=== PATIENT | male | born 1970 | race Caucasian/White ===

== ENCOUNTER 2022-03-12 00:15 | Emergency (ER) | payer OTHER, SELFPAY ==
--- NOTE | 2022-03-12 00:15 | DI.CT_ITS ---
Exam(s) CT RENAL COLIC WO EXAM: CT RENAL COLIC WO CLINICAL HISTORY: left flank pain. TECHNIQUE: Imaging Protocol: Axial computed tomography images with coronal and sagittal reformatted images were created and reviewed. COMPARISON: No exams were available for comparison FINDINGS: ABDOMEN: Lung Bases: Normal where visualized. Liver: Normal density. No measurable mass. Gallbladder and biliary tract: Cholelithiasis. No biliary ductal dilatation. Pancreas: Normal density, no abnormal calcifications or inflammatory process. Spleen: Normal. Kidneys: Normal size, contour and axis.There is a 3 mm stone on the bladder side of the left UVJ caus ing mild hydronephrosis. No masses seen. Adrenal glands: No mass is seen. Lymph nodes: Within normal limits. Abdominal Aorta: Abdominal portion non-dilated. PELVIS: Bladder:Symmetric distention, no gross wall thickening. Bowel: No obstruction or bowel wall thickening. Appendix is unremarkable. Peritoneal cavity: No ascites, collection or mesenteric inflammatory response. No free air. Reproductive organs: Unremarkable as visualized. Bones: Within normal limits. Soft Tissues: There are bilateral fat containing inguinal hernia, left greater than right. IMPRESSION: 1. 3 mm stone on the bladder side of the left UVJ causing mild hydronephrosis. 2. Cholelithiasis. No biliary ductal dilatation. RADIATION DOSE DELIVERED: 803.32mGy.cm Total DLP DATA REPOSITORY: All CT scans at this facility are submitted to the National Radiology Data Registry (NRDR) Dose Index Registry (DIR) with the [employer] ([employer]). RADIATION OPTIMIZATION: All CT scans at this facility use at least one of these dose optimization te chniques: automated exposure control; mA and/or kV adjustment per patient size (includes targeted exa ms where dose is matched to clinical indication); or iterative reconstruction.
[2022-03-12 00:16] VITALS: BP 147/95; PULSE 64; RESP 12; TEMP 36.6; O2SAT 99
--- NOTE | 2022-03-12 00:27 | ED.GENADUL_ITS ---
Discharge Plan Disposition Patient Disposition: HOME Condition: Stable Discharge Details Clinical Impression: Kidney stone Primary Care Provider: Chey,Local ED Provider: Alex Colunga Home Meds and New Rx's Prescriptions: Continued dextroamphetamine-amphetamine [Adderall] 20 mg Tablet 20 mg trazodone 50 mg Tablet 50 mg Discharge Instructions Instructions: Kidney Stones (ED) Additional Instructions: you have a kidney stone that is already in the bladder follow up with your primary care provider within 1-2 weeks if you feel more ill, have severe worsening pain or fevers return to the emergency department Medical Decision Making 52 yo male who has a hx of hld and htn comes in with left flank pain starting a day ago. He states the pain is intermittent but tonight was severe so called ems. He denies n/v, fevers, chills, dysuria. He denies history of kidney stones, no prior abdominal surgeries. He states his pain is better now than it was when he called ems. He localizes the pain to the left lower abdomen and states it was radiating into the back. He has a soft abdomen, has tenderness without guarding in the left lower abdomen, no cva tenderness, no upper abdomen tenderness, no testicle swelling or tenderness. Will obtain labs including cbc, cmp, lipase and ct renal colic. ct shows 3mm stone in the bladder suggesting recently passed, he remains stable and feels no pain now so suspect he has passed the stone. His K was 2.8, oral repletion ordered, will recheck bmp and still waiting for ua ua unremarkable other than hematuria, no evidence of infetion and repeat K normal. Discussed with pt and because he has no symptoms now and because it's in the bladder do not feel he requires urology follow up. I did discuss his gallstones as well and he states he has had these for years and doesn't get symptoms from them, doesn't want a surgical referral. Advised to f/u with pcp and return precautions given Differential Diagnosis Differential Diagnosis: kidney stone, diverticulitis Imaging Data Radiologic Study: Attestation: I personally reviewed and interpreted this imaging study as follows: Imaging: CT Scan Radiologist's impression: IMPRESSION: Mild left hydronephrosis and 3 mm stone in the bladder lumen likely recently passed. Cholelithiasis. Few scattered colonic diverticula Lab Data Lab results reviewed: Yes I reviewed the patient's lab results. HPI General Mode of arrival: EMS . Date/Time Provider Initiated Documentation: 03/12/22 00:17 . Limitations to Documentation: no limitations . Information obtained by: patient . History of Present Illness 52 year old M presents to the emergency department with the chief complaint of left flank pain, described as moderate, Quality is described as stabbing, and is localized to the abdomen and left. Patient reports radiation to back. Patient started experiencing this day(s) (1) and it has been intermittent. No relieving factors improve symptom(s), No exacerbating factors reported . Patient notes no other symptoms.. Patient did receive the following treatments prior to arrival, none Related Data Home Medications Medication Instructions Recorded Confirmed dextroamphetamine-amphetamine 20 20 mg 03/12/22 mg tablet (Adderall) trazodone 50 mg tablet 50 mg 03/12/22 Allergies Allergy/AdvReac Type Severity Reaction Status Date / Time No Known Allergies Allergy Unverified 03/12/22 00:37 General Stated Complaint: FlankPain MARICRUZ: 3 Review of Systems All systems reviewed & are unremarkable except as noted in HPI and below Constitutional Constitutional: Denies chills, Denies fever(s) and Denies weakness Eyes Eyes: Denies loss of vision ENT Ears, Nose, Mouth, and Throat: Denies change in voice Cardiovascular Cardiovascular: Denies chest pain and Denies dyspnea Respiratory Respiratory: Denies cough and Denies dyspnea Gastrointestinal Gastrointestinal: Denies nausea and Denies vomiting Genitourinary Genitourinary: Denies dysuria Integumentary/Breasts Skin/Breast: Denies rash Neurologic Neurologic: Denies loss of vision and Denies weakness PFSH All Active Problems (Updated 03/12/22 @ 01:43 by Alex Colunga MD) Kidney stone (Chronic) Social History Smoking/Tobacco Use Status: Never Smoking risk assessment performed?: Yes Alcohol Intake: current Alcohol Intake frequency: a few times a week Alcohol type: hard liquor Substance use type: does not use Do you feel safe at home: Yes Do you feel safe in your relationship?: Yes Exam Const General: no acute distress Orientation: alert HENMT Head: normal to inspection Ears: external ears normal General nose exam: external nose normal Mouth: moist mucous membranes Eyes General: appearance normal, both eyes and all related structures Neck Neck: normal visual inspection Resp Effort & Inspection: normal respiratory effort and able to speak in complete sentences Cardio Rate: regular rate GI Palpation: soft Back/Spine/Pelvis Back: no CVA tenderness Skin General skin exam: no rashes or lesions noted Neuro General: patient alert and patient oriented x3 Extrem General: normal to inspection Psych Mental Status: mental status grossly normal Course Vital Signs Vital signs: Vital Signs Temperature 36.6 C 03/12/22 00:16 Pulse 64 03/12/22 00:16 Respiratory Rate 12 03/12/22 00:16 Blood Pressure 147/95 H 03/12/22 00:16 Pulse Oximetry 99 03/12/22 00:16 Temperature 36.6 C 03/12/22 00:16 Temperature Source Temporal Artery Scan 03/12/22 00:16 Pulse 64 03/12/22 00:16 Respiratory Rate 12 03/12/22 00:16 Respiratory Effort 03/12/22 00:19 Blood Pressure 147/95 H 03/12/22 00:16 Pulse Oximetry 99 03/12/22 00:16 Oxygen Delivery Method Room Air 03/12/22 00:16 Oxygen Flow Rate 0 03/12/22 00:16 Pain Level 8 03/12/22 00:16 PAWSS Have you Been Recently Intoxicated or Drunk Within the Last 30 days?: No Result: 0
[2022-03-12] MEDS: Normal Saline 1,000 ML 1000 ML IV (00:32)
[2022-03-12 00:34] LABS: Abs Immature Grans 0.02 10^3/uL (0.0-0.06); Absolute Basophil Count 0.05 10^3/uL (0.0-0.2); Absolute Eosinophil Count 0.12 10^3/uL (0.0-0.7); Absolute Lymphocyte Count 2.01 10^3/uL (1.2-3.4); Absolute Monocyte Count 0.45 10^3/uL (0.1-0.8); Absolute Neutrophil Count 2.19 10^3/uL (1.2-6.7); Eosinophils % 2.5; HCT 37.9 % (40.0-50.0); HGB 13.5 g/dL (13.5-17.5); Immature Grans % 0.4; Lymphocytes % 41.5; MCH 31.5 pg (27.0-33.0); MCHC 35.6 % (32.0-36.0); MCV 88 fL (80-95); MPV 9.9 fL (8.0-11.0); Monocytes % 9.3; Neutrophils % 45.3; Platelet Count 247 10^3/uL (130-400); RBC 4.29 10^6/uL (4.36-5.78); RDW 12.5 % (11.8-14.1); RDW-SD 40.5 fL; WBC 4.84 10^3/uL (4.4-10.8)
[2022-03-12] MEDS: Ketorolac 15 MG/ML VIAL IVP (00:34)
[2022-03-12 00:46] LABS: ALT 44 U/L (16-63); AST 34 U/L (15-37); Albumin 3.8 g/dL (3.4-5.0); Alkaline Phosphatase 48 U/L (46-116); Anion Gap 11.2 mmol/L (3-11); BUN 11 mg/dL (7-18); Bilirubin, Direct 0.1 mg/dL (0.0-0.2); Bilirubin, Total 0.4 mg/dL (0.2-1.0); CO2 23.8 mmol/L (21.0-32.0); CREATININE 1.2 mg/dL (0.70-1.30); Calcium 8.9 mg/dL (8.5-10.1); Chloride 102 mmol/L (98-107); Glucose 162 mg/dL (74-106); Lipase 72 U/L (73-393); Sodium 137 mmol/L (136-145); Total Protein 6.7 g/dL (6.4-8.2)
[2022-03-12 00:47] LABS: Potassium 2.8 mmol/L (3.5-5.1)
[2022-03-12] MEDS: Potassium Chloride 20 MEQ TABCR 40 MEQ PO (01:00)
--- NOTE | 2022-03-12 01:37 | DI.VRAD_ITS ---
PROCEDURE INFORMATION: Exam: CT Abdomen And Pelvis Without Contrast Exam date and time: 03/12/2022 12:45 AM Age: 52 years old Clinical indication: Patient HX: L flank pain TECHNIQUE: Imaging protocol: Computed tomography of the abdomen and pelvis without contrast. Radiation optimization: All CT scans at this facility use at least one of these dose optimization techniques: automated exposure control; mA and/or kV adjustment per patient size (includes targeted exams where dose is matched to clinical indication); or iterative reconstruction. COMPARISON: No relevant prior studies available. FINDINGS: Liver: Normal. No mass. Gallbladder and bile ducts: Cholelithiasis. No biliary ductal dilatation. Pancreas: Normal. No ductal dilation. Spleen: Normal. No splenomegaly. Adrenal glands: Normal. No mass. Kidneys and ureters: There is mild left hydronephrosis and a 3 mm stone in the bladder lumen. Right kidney is unremarkable. Stomach and bowel: Few colonic diverticula. Stomach and small bowel are unremarkable. Appendix: Normal appendix. Intraperitoneal space: Benign-appearing lobular 2 x 1.3 cm calcification in the right pelvis. No free air. No significant fluid collection. Vasculature: Unremarkable. No abdominal aortic aneurysm. Lymph nodes: Unremarkable. No enlarged lymph nodes. Urinary bladder: Unremarkable as visualized. Reproductive: Unremarkable as visualized. Bones/joints: Unremarkable. No acute fracture. Soft tissues: Small fat containing inguinal hernias. IMPRESSION: Mild left hydronephrosis and 3 mm stone in the bladder lumen likely recently passed. Cholelithiasis. Few scattered colonic diverticula. Rest of incidental findings as above. Dictated and Authenticated by: Thea Chavez MD. Ordering:CATHY Johnson MD
[2022-03-12 01:58] LABS: Bilirubin Negative (Negative); Blood Large (Negative); Clarity Sl Cloudy (Clear); Glucose Negative (Negative); Ketones Negative (Negative); Leukocyte Esterase Negative (Negative); Nitrite Negative (Negative); Specific Gravity 1.025 (1.005-1.025); Urobilinogen 0.2 EU/dL (Up TO 0.2)
[2022-03-12 02:01] LABS: Bacteria Rare HPF (Negative); C & S Indicated? No; Casts Negative LPF (Negative); Crystals Negative HPF (Negative); Epithelial Cells Negative HPF (Negative); Mucus Negative (Negative); RBC >50 HPF (0-2); WBC Negative HPF (0-5)
[2022-03-12 02:03] LABS: Anion Gap 9.2 mmol/L (3-11); BUN 11 mg/dL (7-18); CO2 23.8 mmol/L (21.0-32.0); CREATININE 1.1 mg/dL (0.70-1.30); Calcium 8.6 mg/dL (8.5-10.1); Chloride 103 mmol/L (98-107); Glucose 113 mg/dL (74-106); Potassium 3.5 mmol/L (3.5-5.1); Sodium 136 mmol/L (136-145)
== END 2022-03-12 02:16 | disposition home or self-care (01) ==
PROVIDERS: Emergency Provider Emergency Medicine
DX: N13.2 Hydronephrosis with renal and ureteral calculous obstruction (principal); K80.20 Calculus of gallbladder without cholecystitis without obstruction
CPT/HCPCS: 80048; 80053; 83690; 96361; 96374; 99284; 74176; 81003; 81015; 82248; 85025; J1885

== ENCOUNTER 2025-01-28 00:02 | Outpatient (CLI) | payer MEDICAID, SELFPAY ==
--- NOTE | 2025-01-28 | DI.US_ITS ---
Exam(s) US SCROTUM EXAM: US SCROTUM CLINICAL HISTORY: abnl skin growth D49.2 Neoplsm of behavior of bone, soft tissue, skin. TECHNIQUE: Scrotal ultrasound performed using grayscale, color-flow and spectral Doppler analysis. COMPARISON: No exams were available for comparison FINDINGS: Right testicle: 3.4 x 2.6 x 3.2 cm Echogenicity: Normal. Contour: Smooth. Mass: None seen. Microlithiasis: None. Hydrocele: There is a small hydrocele measuring 2.8 x 1.3 x 0.9 cm. Variocele: None. Hernia: No peristalsing bowel loop identified. Epididymis: Normal. Left testicle: 4.3 x 2.2 x 2.9 cm Echogenicity: Normal. Contour: Smooth. Mass: None seen. Microlithiasis: None. Hydrocele: There is a small hydrocele measuring 1.5 x 0.5 x 1.3 cm. Variocele: None. Hernia: No peristalsing bowel loop identified. Epididymis: Normal. DOPPLER: Color: Symmetric and uniform, no hyperemia. IMPRESSION: 1. Normal appearing bilateral testicles. 2. Small bilateral hydroceles. DATA REPOSITORY:
== END 2025-01-28 00:22 ==
LOC: DI 00:02
PROVIDERS: PCP Nurse Practitioner Family; Visit Provider Nurse Practitioner Family
DX: N43.3 Hydrocele, unspecified (principal)
CPT/HCPCS: 76870

== ENCOUNTER 2025-05-24 07:32 | Day surgery (SDC) | payer MEDICAID, SELFPAY ==
--- NOTE | 2025-05-23 17:56 | W.PM.DSUDISC ---
Date of service: 05/24/25 Discharge Plan Disposition Patient Disposition: Home Condition: Good Discharge Details Reason For Visit: screening colonoscopy Attending Provider: Harrison Nguyen Primary Care Provider: Ashley Walden Home Meds and New Rx's Prescriptions: Continued sildenafil 50 mg tablet 50 mg PO DAILY PRN Rx Instructions: administer 30 minutes to 4 hours before activity pantoprazole 40 mg tablet,delayed release (DR/EC) 40 mg PO HS lisinopril-hydrochlorothiazide 20-12.5 mg tablet 1 tab PO DAILY dextroamphetamine-amphetamine 30 mg capsule,extended release 24hr 30 mg PO DAILY gemfibrozil 600 mg tablet 600 mg PO BID dextroamphetamine-amphetamine [Adderall] 20 mg Tablet 20 mg PO DAILY trazodone 50 mg Tablet 50 mg PO HS Discontinued bisacodyl [Dulcolax (bisacodyl)] 5 mg tablet,delayed release (DR/EC) 5 mg PO ONCE Qty: 4 0RF Rx Instructions: Take per colonoscopy instructions provided by ordering providers office polyethylene glycol 3350 17 gram/dose powder 17 g PO ONCE Qty: 238 0RF Rx Instructions: Take per colonoscopy instructions provided by ordering providers office Discharge Instructions Additional Instructions: 1. If tolerated, consume a soft, low fiber diet for 1-2 days. 2[address] Do not drive, drink alcohol, operate machinery, make critical decisions, or do activities that require coordination or balance for 24 hours. 3. Because air was put into your colon during the procedure, expelling air from your rectum (passing gas or farting) is normal. 4. You may not have a bowel movement for 1-3 days because of the colonoscopy prep. This is normal. 5. Go directly to the emergency room if you notice any of the following: Develop chills (warm to touch), or if you have a thermometer and your temperature is above 101 Difficulty breathing or difficultly swallowing Persistent vomiting Severe abdominal pain, other than gas cramps Severe chest pain Black, tarry stools Any bleeding ? exceeding one tablespoon 6. Call your physician if the site where your intravenous was started becomes red, swollen, painful, and warm to touch. 7. Your physician has reviewed your pre-procedure medications. Please continue to take those medications as previously ordered. You will be given specific information/education regarding any changes to your medications before leaving. Stand Alone Forms: Anesthesia Discharge Inst., Mark Thornton (DSU) Activity:: Activity as Tolerated Diet:: As Tolerated DS: Diagnosis Discharge Diagnosis (1) Encounter for screening colonoscopy: Status: Acute
--- NOTE | 2025-05-23 17:58 | W.COLOREPORT ---
Date of service: 05/24/25 Colonoscopy Report Date of procedure: 05/24/25 Pre-op diagnosis general: screening colonoscopy Procedure: colonoscopy Surgeon: Harrison Nguyen Anesthesia Type: General:No Airway Complications: None Disposition: same day Indications: Alex is a 55 year old man who needs a screening colonoscopy Prep: Miralax/Dulcolax
== END 2025-05-24 07:33 | disposition home or self-care (01) ==
LOC: SUR 07:32
PROVIDERS: PCP Nurse Practitioner Family; Visit Provider Surgery
DX: Z53.9 Procedure and treatment not carried out, unspecified reason (principal)
CPT/HCPCS: J2003; J2704